=== PATIENT | female | born 1950 | race Asian ===

== ENCOUNTER → 2016-06-07 | Outpatient (CLI) | payer MEDICARE, BC, OTHER ==
[~2016-06-07] MED LIST: ISOVUE-370 76% 100ML VIAL (Q9967) As Ordered ONE
--- NOTE | 2016-06-08 08:28 | REP ---
CT NECK WITH CONTRAST: HISTORY: Enlarged lymph node. CONTRAST: Isovue 370, 75 mL. The naso-, ludin- and hypopharynx, larynx and subglottic trachea are normal in appearance. The salivary and thyroid glands are normal. Small lymph nodes less than 1 cm in size are present in the internal jugular chains, posterior triangles, submandibular and submental areas. Atherosclerotic calcification is present at the carotid bifurcations. Degenerative change is present in the cervical spine. The lung apices are clear. The visualized sinuses are clear. An implant is present in the soft tissue overlying the nasal bone. IMPRESSION: There is no neck mass or adenopathy. Signed by Demian Browning MD 06/08/2016 08:30 A
== END ==
LOC: M RAD 16:58
PROVIDERS: ATTEND Family Medicine
DX: R59.1 Generalized enlarged lymph nodes (principal)
CPT/HCPCS: 70491; Q9967

== ENCOUNTER 2016-09-26 09:28 | Emergency (ER) | payer MEDICARE, BC, OTHER ==
[~2016-09-26] VITALS: Ht 152.4 cm; Wt 71.7 kg
[2016-09-26] MEDS ORDERED: VITA1CAP40 PO (09:48)
[2016-09-26] MEDS ORDERED: METF10004 PO (09:48)
[2016-09-26] MEDS ORDERED: SYNT25TA PO (09:48)
[2016-09-26] MEDS ORDERED: ACTO45TA12 PO (09:48)
[2016-09-26] MEDS ORDERED: REFR0.5D8 (09:48)
[2016-09-26] MEDS ORDERED: OMEP20CA3 PO (09:48)
[2016-09-26] MEDS ORDERED: ALEN70TA39 PO (09:48)
[2016-09-26] MEDS ORDERED: LOSA50TA20 PO (09:48)
[2016-09-26] MEDS ORDERED: GRX1OIN (09:48)
[2016-09-26] MEDS ORDERED: NORCOTAB PO (10:58)
[2016-09-26 11:10] VITALS: BP 141/80
--- NOTE | 2016-09-26 12:15 | REP ---
Clinical: Trauma. Technique: Frontal view of the chest with multiple views of the right and left hemithoraces. Findings: Frontal view of the chest demonstrates no acute cardiopulmonary process. Multiple views of the left hemithorax demonstrates no obvious acute rib fracture or pathology. Oblique view of the right hemithorax suggests a nondisplaced fracture along the anterolateral margin of the right sixth rib. Impression: Cannot exclude very subtle nondisplaced anterior right sixth rib fracture. Signed by Taras Post MD 09/26/2016 10:44 A
== END 2016-09-26 11:18 | disposition home or self-care (01) ==
LOC: M ED 10:28
DX: S20.20XA Contusion of thorax, unspecified, initial encounter (principal); S22.31XA Fracture of one rib, right side, initial encounter for closed fracture; W01.198A Fall on same level from slipping, tripping and stumbling with subsequent striking against other object, initial encounter; Y92.019 Unspecified place in single-family (private) house as the place of occurrence of the external cause; Y93.89 Activity, other specified; Y99.8 Other external cause status; E11.9 Type 2 diabetes mellitus without complications; I10 Essential (primary) hypertension

== ENCOUNTER → 2017-04-19 | Outpatient (CLI) | payer OTHER | LOC: M RAD 15:10 | DX: S92.354D Nondisplaced fracture of fifth metatarsal bone, right foot, subsequent encounter for fracture with routine healing (principal) | CPT/HCPCS: 73700 ==

== ENCOUNTER → 2017-05-01 | Outpatient (CLI) | payer MEDICARE, OTHER | LOC: M RAD 14:40 | DX: Z12.31 Encounter for screening mammogram for malignant neoplasm of breast (principal); Z86.73 Personal history of transient ischemic attack (TIA), and cerebral infarction without residual deficits | CPT/HCPCS: 70551 ==

== ENCOUNTER → 2017-05-11 | Outpatient (CLI) | payer MEDICARE, OTHER, BC | LOC: M WHC 15:49 | DX: Z13.820 Encounter for screening for osteoporosis (principal); M85.80 Other specified disorders of bone density and structure, unspecified site; M81.0 Age-related osteoporosis without current pathological fracture | CPT/HCPCS: 77080 ==

== ENCOUNTER → 2018-07-05 | Outpatient (CLI) | payer MEDICARE, OTHER, BC ==
[~2018-07-05] MED LIST changes: +ACTO45TA12 PO; +ALEN70TA74 PO; +GRX1OIN; +HYDR-3715 PO; -ISOVUE-370 76% 100ML VIAL (Q9967) As Ordered ONE; +LOSA50TA88 PO; +METF10004 PO; +OMEP20CA3 PO; +REFR0.5D8; +SYNT25TA PO; +VITA50005 PO
--- NOTE | 2018-07-06 07:32 | REPMRS ---
Patient History The patient states she had a clinical breast exam in June 2018.Family history of colorectal cancer at age 58 in father. 3D TOMOSYNTHESIS WAS PERFORMED. Digital Mammo Screening Bilat: July 05, 2018 - Exam #: [id number] Bilateral CC and MLO view(s) were taken. Technologist: Brenna Ellis, Technologist Prior study comparison: May 01, 2017, bilateral digital mammo screening bilat performed at [facility]. January 12, 2016, bilateral digital mammo screening bilat performed at [facility]. FINDINGS: There are scattered fibroglandular densities. There has been no change in the appearance of the mammogram from the prior studies. There is a mild amount of residual fibroglandular tissue which is fairly symmetric. There is no interval development of dominant mass, architectural distortion, or clustered microcalcification suggestive of malignancy. Assessment: BI-RADS/ACR category 1 mammogram. Negative Mammogram. Recommendation Routine screening mammogram in 1 year (for women over age 40). This mammogram was interpreted with the aid of an FDA-approved computer-aided dectection system. Electronically Signed By: Librado Hickman MD 07/05/18 [id number]
== END ==
LOC: M RAD 16:25
PROVIDERS: ATTEND Family Medicine
DX: Z12.31 Encounter for screening mammogram for malignant neoplasm of breast (principal); Z80.0 Family history of malignant neoplasm of digestive organs

== ENCOUNTER 2018-08-23 08:10 | Day surgery (SDC) | payer MEDICARE, OTHER, BC ==
[~2018-08-23] VITALS: Ht 152.4 cm; Wt 69.9 kg
[~2018-08-23 08:10] MED LIST changes: +ACET-897 PO; +ACTO15TA19 PO; +ALL10TAB28 PO; +ASPI81TA26 PO; +BYDU2INJ7 SC; +CICL0.7739 TOP; +COLA100C5 PO; +EZET10TA PO; +GLIP5TAB8 PO; +HYDR12CA PO; +MAGN400T2 PO; +METF500T13 PO; +NS 1,000 ML IV ONE; +OMEP-218; -REFR0.5D8; +REFR0.5D8 OU; +SIMV40TA2 PO; +VESI10TA2 PO; +VITA500045
--- NOTE | 2018-08-23 10:23 | ROOR ---
Patient Name: Adrian Bhatt Procedure Date: 08/23/2018 10:11 AM Date of : 1950 Age: 68 Room: [facility] Gender: Female Note Status: Finalized Procedure: Upper GI endoscopy Indications: Dysphagia, Suspected esophageal reflux Providers: Eugene Sandhu Jr, MD Referring MD: JUANA ROWLAND MD Requesting Provider: Medicines: Propofol per Anesthesia Complications: No immediate complications. Procedure: Pre-Anesthesia Assessment: - Prior to the procedure, a History and Physical was performed, and patient medications and allergies were reviewed. The patient is competent. The risks and benefits of the procedure and the sedation options and risks were discussed with the patient. All questions were answered and informed consent was obtained. Patient identification and proposed procedure were verified by the physician and the nurse in the pre-procedure area and in the procedure room. Mental Status Examination: alert and oriented. Airway Examination: normal oropharyngeal airway and neck mobility. Respiratory Examination: clear to auscultation. CV Examination: normal. ASA Grade Assessment: II - A patient with mild systemic disease. After reviewing the risks and benefits, the patient was deemed in satisfactory condition to undergo the procedure. The anesthesia plan was to use moderate sedation / analgesia (conscious sedation). Immediately prior to administration of medications, the patient was re-assessed for adequacy to receive sedatives. The heart rate, respiratory rate, oxygen saturations, blood pressure, adequacy of pulmonary ventilation, and response to care were monitored throughout the procedure. The physical status of the patient was re-assessed after the procedure. The Endoscope was introduced through the mouth, and advanced to the second part of duodenum. The upper GI endoscopy was accomplished without difficulty. The patient tolerated the procedure well. Findings: The upper third of the esophagus, middle third of the esophagus, lower third of the esophagus and gastroesophageal junction were normal. The cardia, gastric fundus, gastric body, gastric antrum, prepyloric region of the stomach and pylorus were normal. The duodenal bulb, first portion of the duodenum and second portion of the duodenum were normal. Impression: - Normal upper third of esophagus, middle third of esophagus, lower third of esophagus and gastroesophageal junction. - Normal cardia, gastric fundus, gastric body, antrum, prepyloric region of the stomach and pylorus. - Normal duodenal bulb, first portion of the duodenum and second portion of the duodenum. - No specimens collected. Recommendation: - Discharge patient to home (ambulatory). - Return to primary care physician as previously scheduled. Eugene Sandhu MD Eugene Sandhu Jr, MD 08/23/2018 10:23:08 AM Electronically signed by Eugene Sandhu Jr, MD Number of Addenda: 0 Note Initiated On: 08/23/2018 10:11 AM Estimated Blood Loss: Estimated blood loss: none.
[2018-08-23] MEDS ORDERED: PROPOFOL 200 MG/20 ML VIAL As Ordered ONE (10:26)
[2018-08-23] MEDS ORDERED: LIDOCAINE 2% INJ 100 MG/5 ML SDV (FOR ANES.) As Ordered ONE (10:26)
--- NOTE | 2018-08-23 10:44 | ROOR ---
Patient Name: Adrian Bhatt Procedure Date: 08/23/2018 10:11 AM Date of : 1950 Age: 68 Room: [facility] Gender: Female Note Status: Finalized Procedure: Colonoscopy Indications: Screening for colorectal malignant neoplasm Providers: Eugene Sandhu Jr, MD Referring MD: JUANA ROWLAND MD Requesting Provider: Medicines: Propofol per Anesthesia Complications: No immediate complications. Procedure: Pre-Anesthesia Assessment: - Prior to the procedure, a History and Physical was performed, and patient medications and allergies were reviewed. The patient is competent. The risks and benefits of the procedure and the sedation options and risks were discussed with the patient. All questions were answered and informed consent was obtained. Patient identification and proposed procedure were verified by the physician and the nurse in the pre-procedure area and in the procedure room. Mental Status Examination: alert and oriented. Airway Examination: normal oropharyngeal airway and neck mobility. Respiratory Examination: clear to auscultation. CV Examination: normal. ASA Grade Assessment: II - A patient with mild systemic disease. After reviewing the risks and benefits, the patient was deemed in satisfactory condition to undergo the procedure. The anesthesia plan was to use moderate sedation / analgesia (conscious sedation). Immediately prior to administration of medications, the patient was re-assessed for adequacy to receive sedatives. The heart rate, respiratory rate, oxygen saturations, blood pressure, adequacy of pulmonary ventilation, and response to care were monitored throughout the procedure. The physical status of the patient was re-assessed after the procedure. The Colonoscope was introduced through the anus and advanced to the ascending colon. The patient tolerated the procedure well. The colonoscopy was performed with moderate difficulty due to inadequate bowel prep. The quality of the bowel preparation was good except the ascending colon was poor. Findings: The rectum, sigmoid colon, descending colon, transverse colon and ascending colon appeared normal. The sigmoid colon, descending colon, transverse colon and ascending colon were moderately redundant. Impression: - The rectum, sigmoid colon, descending colon, transverse colon and ascending colon are normal. - Redundant colon. - No specimens collected. Recommendation: - Repeat colonoscopy in 10 years for screening purposes. Eugene Sandhu MD Eugene Sandhu Jr, MD 08/23/2018 10:44:08 AM Electronically signed by Eugene Sandhu Jr, MD Number of Addenda: 0 Note Initiated On: 08/23/2018 10:11 AM Estimated Blood Loss: Estimated blood loss: none.
[2018-08-23 11:25] VITALS: BP 150/85
== END 2018-08-23 11:28 | disposition home or self-care (01) ==
LOC: M OPP 08:10
PROVIDERS: ATTEND Surgery
DX: Z12.11 Encounter for screening for malignant neoplasm of colon (principal); Q43.8 Other specified congenital malformations of intestine; R13.10 Dysphagia, unspecified; Z91.040 Latex allergy status; Z91.048 Other nonmedicinal substance allergy status; Z79.899 Other long term (current) drug therapy
CPT/HCPCS: 43235; G0121

== ENCOUNTER → 2020-07-01 | Outpatient (CLI) | payer MEDICARE, BC, OTHER ==
[~2020-07-01] MED LIST changes: -ALEN70TA74 PO; +ALEN70TA82 PO; -ALL10TAB28 PO; +CETI-24 PO; -EZET10TA PO; +EZET10TA21 PO; -NS 1,000 ML IV ONE; +OMEP1CAP73 PO; -OMEP20CA3 PO; -SIMV40TA2 PO; +SIMV40TA20 PO
--- NOTE | 2020-07-01 17:57 | REPVR ---
PROCEDURE INFORMATION: Exam: CT Head Without Contrast Exam date and time: 07/01/2020 5:16 PM Age: 69 years old Clinical indication: Pain; Headache; Additional info: Santos's TECHNIQUE: Imaging protocol: Computed tomography of the head without contrast. Radiation optimization: All CT scans at this facility use at least one of these dose optimization techniques: automated exposure control; mA and/or kV adjustment per patient size (includes targeted exams where dose is matched to clinical indication); or iterative reconstruction. COMPARISON: MRI-Brain without Contrast 05/01/2017 4:06 PM FINDINGS: Brain: No acute intracranial hemorrhage is visualized. The white-hernandez differentiation is preserved demonstrating no acute territorial type infarct. There is minimal periventricular white matter hypodensity, likely representing small vessel ischemic disease in a patient this age. The acuity of the white matter disease is indeterminate. There is no midline shift. A small hypodense dilated perivascular space is visualized below the right basal ganglia. A small calcification is identified within the right basal ganglia. Mild age-appropriate prominence of the sulci. Cerebral ventricles: A cavum septum pellucidum variant is visualized. No ventriculomegaly. Bones/joints: The calvarium demonstrates no evidence for a depressed fracture. Hyperostosis frontalis interna. Paranasal sinuses: Visualized sinuses are unremarkable. No fluid levels. Mastoid air cells: No mastoid effusion. Orbital cavity: Bilateral orbital lens implants. Vasculature: Intracranial atherosclerosis visualized. Soft tissues: Unremarkable. IMPRESSION: 1. No acute intracranial hemorrhage or acute territorial type infarct. 2. There is minimal periventricular white matter hypodensity, likely representing small vessel ischemic disease in a patient this age. Electronically signed by: Braulio Miranda On 07/01/2020 17:58:16 PM
--- NOTE | 2020-07-02 07:41 | REP ---
INDICATION: SÁNCHEZ'S COMPARISON: None. TECHNIQUE: AP and lateral views of the thoracic spine FINDINGS: Alignment and kyphosis maintained. Age-related osteopenia and moderate/advanced multilevel degenerative changes include osteophytosis, endplate sclerosis, and elements of disc space narrowing. No acute fracture/compression injury or subluxation. IMPRESSION: Osteopenia and age-related multilevel degenerative spondylosis. <Electronically signed by Taras Post > 07/02/20 0737
--- NOTE | 2020-07-02 07:42 | REP ---
INDICATION: SÁNCHEZ'S COMPARISON: None. TECHNIQUE: AP, lateral, bilateral oblique, and coned-down views of the lumbar spine. FINDINGS: Alignment and lordosis maintained. Vertebral bodies are intact. Disc spaces are relatively normal/age-appropriate. No acute fracture/compression injury or subluxation. Very minimal hypertrophic facet changes and anterolisthesis at the L5-S1 level suggested. IMPRESSION: Essentially age-appropriate examination. <Electronically signed by Taras Post > 07/02/20 0769
--- NOTE | 2020-07-02 07:45 | REP ---
INDICATION: SÁNCHEZ'S. COMPARISON: None. TECHNIQUE: AP, lateral, flexion/extension, bilateral oblique, swimmer's, open mouth views of the cervical spine. FINDINGS: Straightening of normal lordosis nonspecific. Moderate to advanced multilevel degenerative changes include endplate sclerosis, disc space narrowing, osteophytosis and hypertrophic facet changes. No acute fracture/compression injury or subluxation. IMPRESSION: Moderate to advanced multilevel degenerative spondylosis. <Electronically signed by Taras Post > 07/02/20 0746
== END ==
LOC: M RAD 16:59
PROVIDERS: ATTEND Family Medicine
DX: M47.812 Spondylosis without myelopathy or radiculopathy, cervical region (principal); M47.814 Spondylosis without myelopathy or radiculopathy, thoracic region; M85.88 Other specified disorders of bone density and structure, other site; G44.89 Other headache syndrome; M54.2 Cervicalgia

== ENCOUNTER → 2020-08-03 | Outpatient (CLI) | payer MEDICARE, BC, OTHER ==
--- NOTE | 2020-08-04 09:09 | REP ---
INDICATION: RADICULOPATHY CERVICAL REGION. COMPARISON: Comparison cervical spine radiographs are from July 01, 2020.. TECHNIQUE: Sagittal and axial T1 and T2-weighted scans are acquired in the usual fashion with and without fat saturation. Sequences include spin echo, turbo spin-echo, and STIR imaging sequences. FINDINGS: There is reversal of the normal cervical lordosis. Cervical vertebral body heights are preserved. Alignment is otherwise normal. No bony destructive lesion is seen. There are degenerative disc changes which are most pronounced at C5-6 and C6-7 and there are some mild reactive marrow edema changes on either side of the C5-6 disc. Craniocervical junction is unremarkable. The cervical cord is normal in course, caliber and signal intensity on T1 and T2 weighted scans. No extra spinal abnormality is observed. Axial and sagittal images taken at C2-C3 demonstrate mild central disc bulging. No spinal stenosis or foraminal encroachment. At C3-C4, there is a central focal disc protrusion which effaces the ventral subarachnoid space but does not visibly deform the cervical cord. No foraminal narrowing or overall spinal stenosis is seen. The central disc protrusion is visualized on axial images. Juanita the C4-5 level, there is also a central focal disc protrusion. This indents the ventral margin of the cord but does not displace the cord. No spinal stenosis is seen. No neural foraminal narrowing is observed. At the C5-6 level, there is diffuse disc bulging with posterior osteophytic ridging. There is mild bilateral uncovertebral spurring producing foraminal narrowing on the right and to a lesser extent on the left. No overall cord compression. At C6-C7, there is similar diffuse disc bulging and posterior osteophytic ridging. Bilateral uncovertebral spurring is seen producing moderate bilateral neural foraminal narrowing at C6-7. There is mild ligamentum flavum hypertrophy. The midline AP dimension of the thecal sac at C6-7 is 9 mm. No jorge cord compression. The C7-T1 level is unremarkable. There is minimal disc bulging at the T2-3 level in the upper thoracic spine at the bottom of the imaging field of view. IMPRESSION: Degenerative spondylosis changes. There are central disc protrusions at C3-4 and C4-5. There is diffuse disc bulging with osteophytic ridging and uncovertebral spurring producing neural foraminal narrowing at C5-6 and C6-7 as described above. <Electronically signed by Bao Mckeon > 08/04/20 0919
== END ==
LOC: M RAD 17:04
PROVIDERS: ATTEND Family Medicine
DX: M50.21 Other cervical disc displacement, high cervical region (principal); M50.221 Other cervical disc displacement at C4-C5 level; M50.222 Other cervical disc displacement at C5-C6 level; M50.223 Other cervical disc displacement at C6-C7 level; M47.812 Spondylosis without myelopathy or radiculopathy, cervical region

== ENCOUNTER → 2020-08-07 | Outpatient (CLI) | payer MEDICARE, BC, OTHER ==
--- NOTE | 2020-08-07 16:24 | REP ---
INDICATION: Z12.31 SCREENING MAMMO. COMPARISON: MULTIPLE TECHNIQUE: Digital screening mammography was carried out bilaterally in the CC and MLO projections using both 2D and 3D modalities and compared to the prior exams. By history, the patient has no complaints of a palpable breast abnormality or other significant breast complaints. FINDINGS: The breasts are unchanged in size and shape. Once again, scattered dense heterogenous fibroglandular elements are seen bilaterally. In the slightly upper outer quadrant of the right breast there is a potential joycelyn density near the 9 o'clock position. No other suspicious features are seen in either breast. Stable benign calcifications are seen bilaterally. The Volpara volumetric breast density pattern is b. IMPRESSION: BIRADS/ACR category 0. Potential joycelyn density in the right breast as described above and for which diagnostic digital magnified spot compression views are recommended in the CC and MLO projections along with diagnostic ultrasonography if necessary. This patient's Tyrer-Cuzick lifetime breast cancer risk assessment score is 1.4%. This mammogram was interpreted with the aid of an FDA-approved computer-aided detection system. The patient states she had a clinical breast exam in July 2020. The patient letter being requested is M0. RECOMMENDATION: As above <Electronically signed by Sujit Howe > 08/07/20 [id number]
== END ==
LOC: M WHC 14:58
PROVIDERS: ATTEND Family Medicine
DX: Z12.31 Encounter for screening mammogram for malignant neoplasm of breast (principal); R92.1 Mammographic calcification found on diagnostic imaging of breast; R92.8 Other abnormal and inconclusive findings on diagnostic imaging of breast

== ENCOUNTER → 2020-09-03 | Outpatient (CLI) | payer MEDICARE, BC, OTHER ==
--- NOTE | 2020-09-03 11:50 | REP ---
INDICATION: ADDITIONAL VIEWS RT BREAST. COMPARISON: Latest prior screening examination 08/07/2020 TECHNIQUE: Diagnostic digital magnified spot compression views of the right breast FINDINGS: The small area of interest in the right breast slightly upper outer quadrant has compressed out to normal breast parenchyma on the diagnostic spot compression views. No abnormalities are noted. IMPRESSION: BIRADS/ACR category 2 negative mammogram. The patient letter being requested is M1. RECOMMENDATION: Repeat screening mammography recommended 1 year (for women over 40). <Electronically signed by Sujit Howe > 09/03/20 1145
== END ==
LOC: M WHC 11:00
PROVIDERS: ATTEND Family Medicine
DX: R92.8 Other abnormal and inconclusive findings on diagnostic imaging of breast (principal)

== ENCOUNTER 2020-09-28 12:56 | Emergency (ER) | payer MEDICARE, BC, OTHER ==
[~2020-09-28] VITALS: Ht 152.4 cm; Wt 71.9 kg
[2020-09-28] MEDS ORDERED: GABA-282 (13:54)
[2020-09-28] MEDS ORDERED: LIDOCAINE 2% 5ML JELLY UROJET TOP ONE (16:05)
[2020-09-28] MEDS ORDERED: NORCO, ANEXSIA 5/325MG TABLET (HYDROcodone/ACETAMINOPHEN) PO ONE ×2 (16:05→22:15)
--- NOTE | 2020-09-28 17:48 | REPVR ---
PROCEDURE INFORMATION: Exam: CT Head Without Contrast Exam date and time: 09/28/2020 4:03 PM Age: 70 years old Clinical indication: Injury or trauma; Fall; Blunt trauma (contusions or hematomas); Additional info: Fall down 1 story escalator, post head pain, no loc TECHNIQUE: Imaging protocol: Computed tomography of the head without contrast. Radiation optimization: All CT scans at this facility use at least one of these dose optimization techniques: automated exposure control; mA and/or kV adjustment per patient size (includes targeted exams where dose is matched to clinical indication); or iterative reconstruction. COMPARISON: CT Head without contrast 07/01/2020 5:18 PM FINDINGS: Brain: No acute intracranial hemorrhage, cerebral edema, or midline shift. Cerebral ventricles: No hydrocephalus. Paranasal sinuses: There is no acute sinusitis. Mastoid air cells: Visualized mastoid air cells are well aerated. Orbital cavity: Unremarkable as visualized. Vasculature: Atherosclerotic calcifications are seen involving the cavernous carotid arteries. Bones/joints: Hyperostosis frontalis interna is noted. Soft tissues: Unremarkable. IMPRESSION: No acute intracranial abnormality. Electronically signed by: Pedro Law On 09/28/2020 17:47:17 PM
--- NOTE | 2020-09-28 18:11 | REPVR ---
PROCEDURE INFORMATION: Exam: CT Cervical Spine Without Contrast Exam date and time: 09/28/2020 4:03 PM Age: 70 years old Clinical indication: Injury or trauma; Fall; Blunt trauma; Additional info: Fall down 1 story escalator, sev back pain, unable to walk TECHNIQUE: Imaging protocol: Computed tomography images of the cervical spine without contrast. Radiation optimization: All CT scans at this facility use at least one of these dose optimization techniques: automated exposure control; mA and/or kV adjustment per patient size (includes targeted exams where dose is matched to clinical indication); or iterative reconstruction. COMPARISON: MRI-Spine,Cervical without con 08/03/2020 5:51 PM FINDINGS: Bones/joints: There is mild reversal of the normal cervical lordosis. No acute fracture is identified. Discs/Spinal canal/Neural foramina: Moderate degenerative changes of the cervical spine are present. There is no severe spinal canal stenosis. Multilevel neural foraminal narrowing from uncinate spurring and facet arthropathy is noted. Lungs: Lung apices are normal. Vasculature: Atherosclerotic calcifications are present at the carotid bifurcations. Soft tissues: Unremarkable. IMPRESSION: 1. No acute abnormality. 2. Chronic findings as discussed above. Electronically signed by: Pedro Law On 09/28/2020 18:11:12 PM
--- NOTE | 2020-09-28 18:12 | REPVR ---
PROCEDURE INFORMATION: Exam: CT Lumbar Spine Without Contrast Exam date and time: 09/28/2020 4:03 PM Age: 70 years old Clinical indication: Injury or trauma; Fall; Blunt trauma (contusions or hematomas); Additional info: Fall down 1 story escalator, severe back pain TECHNIQUE: Imaging protocol: Computed tomography images of the lumbar spine without contrast. Radiation optimization: All CT scans at this facility use at least one of these dose optimization techniques: automated exposure control; mA and/or kV adjustment per patient size (includes targeted exams where dose is matched to clinical indication); or iterative reconstruction. COMPARISON: CR Spine. Lumbosacral, complete 07/01/2020 5:16 PM FINDINGS: Vertebrae: The lumbar vertebra and facet joints appear in alignment. There is no evidence of fracture. There is sclerosis and facet hypertrophy bilaterally. L5-S1: The L5-S1 level demonstrates a moderate posterior disc protrusion causing mild impression on the thecal sac. Soft tissues: There is vascular calcification. IMPRESSION: No evidence of fracture. Electronically signed by: Micheal Richards On 09/28/2020 18:12:27 PM
--- NOTE | 2020-09-28 18:28 | REPVR ---
PROCEDURE INFORMATION: Exam: CT Thoracic Spine Without Contrast Exam date and time: 09/28/2020 4:03 PM Age: 70 years old Clinical indication: Injury or trauma; Fall; Blunt trauma (contusions or hematomas); Additional info: Fall down 1 story escalator, sev back pain TECHNIQUE: Imaging protocol: Computed tomography images of the thoracic spine without contrast. Radiation optimization: All CT scans at this facility use at least one of these dose optimization techniques: automated exposure control; mA and/or kV adjustment per patient size (includes targeted exams where dose is matched to clinical indication); or iterative reconstruction. COMPARISON: CR Spine, Thoracic 3 VIEWS 07/01/2020 5:16 PM FINDINGS: Vertebrae: There is a horizontal fracture of the superior endplate of T12 and also mild compression of the superior endplate. This creates a moderate posterior osteophyte causing moderate impression on the thecal sac at the level of the upper margin T12 greater on the right. There is anterior osteophyte formation of the thoracic spine and mild kyphosis. Other bones/joints: There is irregularity of the sternum and suggest radiographs of the sternum to exclude fracture. Adrenals: There is a 2.1 cm nodule of the left adrenal gland probably an adenoma and recommend follow-up CT in 6 months to document stability. IMPRESSION: 1. There is a horizontal fracture of the superior endplate of T12 with mild compression of the superior endplate. Moderate posterior osteophyte causing moderate impression on the thecal sac. 2. Irregularity of the sternum and recommend plain films of the sternum to exclude fracture. 3. 2.1 cm nodule left adrenal gland probably an adenoma and recommend follow-up CT in 6 months to document stability. Electronically signed by: Micheal Richards On 09/28/2020 18:28:28 PM
[2020-09-28] MEDS ORDERED: methocarbamoL 500 MG TAB PO ONE (18:30)
[2020-09-28] MEDS ORDERED: LIDOCAINE 4% CREAM 5GM (LMX4) TOP ONE (18:30)
[2020-09-28 19:04] LABS: BASO % 0.3 % (0.0-1.0); EOS # 0.2 10^3/uL (0.0-0.5); EOS % 3.7 % (0.0-3.0); HEMATOCRIT 38.1 % (36.0-47.0); HEMOGLOBIN 11.5 g/dl (12.0-15.5); LYMPH # 1.7 10^3/uL (1.5-5.0); LYMPH % 28.9 % (24.0-44.0); MEAN CORPUSCULAR HGB CONC 30.2 g/dl (32.0-36.5); MEAN CORPUSCULAR VOLUME 89.4 fl (80.0-96.0); MONO # 0.5 10^3/uL (0.0-0.8); MONO % 8.9 % (2.0-8.0); NEUTROPHILS # 3.3 10^3/uL (1.5-8.5); NEUTROPHILS % 57.5 % (36.0-66.0); PLATELET COUNT, AUTOMATED 217 10^3/uL (150-450); RED BLOOD COUNT 4.26 10^6/uL (4.00-5.40); WHITE BLOOD COUNT 5.8 10^3/uL (4.0-10.0)
[2020-09-28 19:26] LABS: ALBUMIN 3.4 GM/DL (3.2-5.2); ALT/SGPT 42 U/L (12-78); BILIRUBIN,DIRECT 0.1 MG/DL (0.0-0.2); BILIRUBIN,TOTAL 0.3 MG/DL (0.2-1.0); BLOOD UREA NITROGEN 14 MG/DL (7-18); CALCIUM LEVEL 8.9 MG/DL (8.8-10.2); CARBON DIOXIDE LEVEL 28 MEQ/L (21-32); CHLORIDE LEVEL 104 MEQ/L (98-107); CREATININE FOR GFR 0.72 MG/DL (0.55-1.30); GLOMERULAR FILTRATION RATE > 60.0 (>39); GLUCOSE, FASTING 79 MG/DL (70-100); LIPASE 49 U/L (73-393); SODIUM LEVEL 138 MEQ/L (136-145); TOTAL PROTEIN 6.9 GM/DL (6.4-8.2)
[2020-09-28] MEDS ORDERED: ISOVUE-370 76% 100ML VIAL As Ordered ONE (20:02)
--- NOTE | 2020-09-28 20:04 | REPVR ---
PROCEDURE INFORMATION: Exam: MR Lumbar Spine Without Contrast Exam date and time: 09/28/2020 7:29 PM Age: 70 years old Clinical indication: Injury or trauma; Fall; Crushing; Injury date: Today; Injury details: Fell down escalator; Additional info: Urinary retention, fall down 1 story escalator, sev pain TECHNIQUE: Imaging protocol: Multiplanar magnetic resonance images of the lumbar spine without intravenous contrast. COMPARISON: CT Spine, lumbar w/o contrast 09/28/2020 5:05 PM FINDINGS: Vertebrae: There is a horizontal fracture of the superior endplate of T12 with prominent edema of the upper half of the vertebra. There is mild compression of the superior endplate causing a moderate posterior osteophyte/bony ridge. This causes moderate impression on the thecal sac. Spinal cord: The conus is normal in size and ending at T12 with no evidence of abnormal bright signal intensity edema. The thoracic cord ends at L1. Soft tissues: There is mild soft tissue swelling in the subcutaneous layer posteriorly. IMPRESSION: Horizontal fracture of the superior endplate of T12 with mild compression of the endplate. This causes a posterior bony ridge at the upper margin of T12 causing moderate impression on the thecal sac. Electronically signed by: Micheal Richards On 09/28/2020 20:03:44 PM
[2020-09-28 21:38] LABS: RSV AMPLIFICATION NEGATIVE (NEGATIVE)
--- NOTE | 2020-09-28 22:18 | REPVR ---
PROCEDURE INFORMATION: Exam: CT Abdomen And Pelvis Without Contrast Exam date and time: 09/28/2020 8:53 PM Age: 70 years old Clinical indication: Abdominal pain; Additional info: Diffuse abd pain TECHNIQUE: Imaging protocol: Computed tomography of the abdomen and pelvis without contrast. Radiation optimization: All CT scans at this facility use at least one of these dose optimization techniques: automated exposure control; mA and/or kV adjustment per patient size (includes targeted exams where dose is matched to clinical indication); or iterative reconstruction. COMPARISON: CT ABD PELVIS WITH CONTRAST 11/05/2013 8:30 PM FINDINGS: Lungs: Clear appearing lung bases. Heart: The heart is normal in size and there is no pericardial effusion. Liver: Normal appearing liver and appearing intact. Gallbladder and bile ducts: The gallbladder is partially contracted. Small amount of sludge and gravel like material within the gallbladder. Pancreas: Normal pancreas. Spleen: Normal spleen and appearing intact. Adrenal glands: Nodule of the left adrenal gland unchanged since 2013 and probably an adenoma. Kidneys and ureters: Normal appearing kidneys. Stomach and bowel: Unremarkable. No obstruction. No mucosal thickening. Appendix: Normal appearing appendix. Intraperitoneal space: There is no evidence of pneumoperitoneum. There is no evidence of free fluid in the abdomen or pelvis. Vasculature: There is calcification of the aorta and consistent with atherosclerotic changes. There are prominent varices at the left upper quadrant and extending along the left side of the abdomen to the pelvis. Lymph nodes: There is no evidence of lymphadenopathy. Urinary bladder: There is a Mills catheter within the urinary bladder. There is a small amount of urine within the urinary bladder. Soft tissues: There is no evidence of soft tissue abnormality. IMPRESSION: 1. There is a horizontal fracture of the superior endplate of T12. The fracture extends to the superior posterior aspect of the vertebral body abutting the pedicle. Corner type fragment of bone creating a posterior bony ridge and moderate impression on the thecal sac. 2. No organ laceration. Electronically signed by: Micheal Richards On 09/28/2020 22:17:27 PM
[2020-09-29 00:43] VITALS: BP 128/95
== END 2020-09-29 00:55 | disposition short-term general hospital (02) ==
LOC: M ED 12:56
DX: S22.088A Other fracture of T11-T12 vertebra, initial encounter for closed fracture (principal); R33.9 Retention of urine, unspecified; W10.0XXA Fall (on)(from) escalator, initial encounter; Y92.59 Other trade areas as the place of occurrence of the external cause; Y93.9 Activity, unspecified; Y99.9 Unspecified external cause status; E11.9 Type 2 diabetes mellitus without complications; I10 Essential (primary) hypertension; E03.9 Hypothyroidism, unspecified; N32.81 Overactive bladder; M81.0 Age-related osteoporosis without current pathological fracture; E78.5 Hyperlipidemia, unspecified; E27.9 Disorder of adrenal gland, unspecified; M25.78 Osteophyte, vertebrae; Z79.84 Long term (current) use of oral hypoglycemic drugs; Z79.82 Long term (current) use of aspirin; Z79.899 Other long term (current) drug therapy; Z91.040 Latex allergy status
CPT/HCPCS: 36415; 51701; 70450; 72125; 72128; 72131; 72148; 74176; 80048; 80076; 81001; 83690; 85025; 86850; 86900; 86901; 87086; 87631; 99284; Q9967

== ENCOUNTER → 2021-05-17 | Outpatient (CLI) | payer MEDICARE, BC, OTHER ==
[~2021-05-17] MED LIST changes: +GABA-282; +LOSA50TA28 PO; -LOSA50TA88 PO; +OMEP-173; -OMEP-218
[2021-05-17 13:50] LABS: VITAMIN B12 LEVEL 322 PG/ML (247-911)
== END ==
LOC: M RAD 07:24
PROVIDERS: ATTEND Family Medicine
DX: G44.89 Other headache syndrome (principal)

== ENCOUNTER → 2021-11-26 | Outpatient (CLI) | payer MEDICARE, BC, OTHER ==
[2021-11-26 17:00] LABS: BILIRUBIN,DIRECT 0.2 MG/DL (0.0-0.2); BILIRUBIN,TOTAL 0.4 MG/DL (0.2-1.0); CHOLESTEROL RISK RATIO 2.54 (<5); PERCENT SATURATION 13.5 % (13.2-45.0); TOTAL PROTEIN 7.9 GM/DL (6.4-8.2)
[2021-11-26 17:29] LABS: FOLATE 18.4 NG/ML
== END ==
LOC: M LAB 15:26
PROVIDERS: ATTEND Family Medicine
DX: E78.2 Mixed hyperlipidemia (principal); D63.8 Anemia in other chronic diseases classified elsewhere

== ENCOUNTER → 2021-12-03 | Outpatient (CLI) | payer MEDICARE, BC, OTHER | LOC: M WHC 13:56 | PROVIDERS: ATTEND Family Medicine | DX: Z12.31 Encounter for screening mammogram for malignant neoplasm of breast (principal); M81.0 Age-related osteoporosis without current pathological fracture; M85.88 Other specified disorders of bone density and structure, other site; M85.851 Other specified disorders of bone density and structure, right thigh; M85.852 Other specified disorders of bone density and structure, left thigh ==

== ENCOUNTER → 2022-02-02 | Outpatient (CLI) | payer MEDICARE, BC, OTHER ==
[2022-02-02 11:38] LABS: BASO # 0.1 10^3/uL (0.0-0.2); BASO % 0.7 % (0.0-1.0); EOS # 0.2 10^3/uL (0.0-0.5); EOS % 2.5 % (0.0-3.0); HEMATOCRIT 41.9 % (36.0-47.0); HEMOGLOBIN 12.7 g/dl (12.0-15.5); LYMPH # 2.6 10^3/uL (1.5-5.0); LYMPH % 37.7 % (24.0-44.0); MEAN CORPUSCULAR HGB CONC 30.3 g/dl (32.0-36.5); MEAN CORPUSCULAR VOLUME 82.3 fl (80.0-96.0); MONO # 0.6 10^3/uL (0.0-0.8); MONO % 8.1 % (2.0-8.0); NEUTROPHILS # 3.5 10^3/uL (1.5-8.5); NEUTROPHILS % 50.7 % (36.0-66.0); PLATELET COUNT, AUTOMATED 240 10^3/uL (150-450); RED BLOOD COUNT 5.09 10^6/uL (4.00-5.40); WHITE BLOOD COUNT 6.9 10^3/uL (4.0-10.0)
[2022-02-02 13:57] LABS: ALBUMIN 3.8 GM/DL (3.2-5.2); ALT/SGPT 25 U/L (12-78); BILIRUBIN,TOTAL 0.4 MG/DL (0.2-1.0); BLOOD UREA NITROGEN 12 MG/DL (7-18); CALCIUM LEVEL 9.9 MG/DL (8.8-10.2); CARBON DIOXIDE LEVEL 27 MEQ/L (21-32); CHLORIDE LEVEL 105 MEQ/L (98-107); CHOLESTEROL LEVEL 155 MG/DL (<200); CHOLESTEROL RISK RATIO 2.719 (<5); CREATININE FOR GFR 0.84 MG/DL (0.55-1.30); FREE T3 2.7 PG/ML (2.2-4.0); FREE T4 0.96 NG/DL (0.76-1.46); GLOMERULAR FILTRATION RATE > 60.0 (>39); GLUCOSE, FASTING 186 MG/DL (70-100); HDL CHOLESTEROL 57 MG/DL (>40); LDL CHOLESTEROL 72 MG/DL (<100); MAGNESIUM LEVEL 2.1 MG/DL (1.8-2.4); NON-HDL-C 98 MG/DL; NT-PRO BNP 64 PG/ML (<125); POTASSIUM SERUM 4.1 MEQ/L (3.5-5.1); SODIUM LEVEL 135 MEQ/L (136-145); TOTAL 25(OH) VITAMIN D 62.7 NG/ML (30.0-100.0); TOTAL PROTEIN 7.9 GM/DL (6.4-8.2); TRIGLYCERIDES LEVEL 129 MG/DL (<150); URIC ACID 4.5 MG/DL (2.6-6.0)
== END ==
LOC: M LAB 10:51
PROVIDERS: ATTEND Family Medicine
DX: R60.9 Edema, unspecified (principal); E03.9 Hypothyroidism, unspecified; E11.29 Type 2 diabetes mellitus with other diabetic kidney complication; I10 Essential (primary) hypertension; E56.9 Vitamin deficiency, unspecified; E78.2 Mixed hyperlipidemia

== ENCOUNTER → 2022-04-18 | Outpatient (CLI) | payer MEDICARE, BC, OTHER ==
[2022-04-18 11:38] LABS: FREE T3 3.4 PG/ML (2.3-4.2); THYROID STIMULATING HORMONE 10.55 uIU/ML (0.55-4.78)
[2022-04-18 11:39] LABS: FREE T4 0.93 NG/DL (0.89-1.76)
== END ==
LOC: M LAB 09:51
PROVIDERS: ATTEND Family Medicine
DX: E03.9 Hypothyroidism, unspecified (principal)

== ENCOUNTER 2022-05-17 00:24 | Inpatient (IN) | payer MEDICARE, BC, OTHER ==
[~2022-05-17] VITALS: Ht 152.4 cm; Wt 65.6 kg
[~2022-05-17 00:24] MED LIST changes: -GABA-282; +GABA-282 PO
[2022-05-17] MEDS ORDERED: LANTINJ4 SC (00:44)
[2022-05-17] MEDS ORDERED: ONDANSETRON 4MG 2ML VIAL IV ONE (01:10)
[2022-05-17] MEDS ORDERED: NS 1,000 ML IV ONE (01:10)
[2022-05-17 02:40] LABS: BASO % 0.2 % (0.0-1.0); EOS % 0.1 % (0.0-3.0); HEMATOCRIT 43.2 % (36.0-47.0); HEMOGLOBIN 13.8 g/dl (12.0-15.5); LYMPH # 1.6 10^3/uL (1.5-5.0); LYMPH % 15.5 % (24.0-44.0); MEAN CORPUSCULAR HEMOGLOBIN 25.7 pg (27.0-33.0); MEAN CORPUSCULAR HGB CONC 31.9 g/dl (32.0-36.5); MEAN CORPUSCULAR VOLUME 80.6 fl (80.0-96.0); MONO # 0.8 10^3/uL (0.0-0.8); MONO % 7.3 % (2.0-8.0); NEUTROPHILS # 7.9 10^3/uL (1.5-8.5); NEUTROPHILS % 76.5 % (36.0-66.0); PLATELET COUNT, AUTOMATED 219 10^3/uL (150-450); RED BLOOD COUNT 5.36 10^6/uL (4.00-5.40); WHITE BLOOD COUNT 10.3 10^3/uL (4.0-10.0)
[2022-05-17 02:55] LABS: LIPASE 20 U/L (12-53)
[2022-05-17 03:57] LABS: ALBUMIN 4.1 G/DL (3.2-5.2); ALKALINE PHOSPHATASE 68 U/L (46-116); ALT/SGPT 13 U/L (7.0-40); AST/SGOT 22 U/L (<34); BILIRUBIN,TOTAL 1.2 MG/DL (0.3-1.2); BLOOD UREA NITROGEN 26 MG/DL (9-23); CALCIUM LEVEL 9.5 MG/DL (8.3-10.6); CARBON DIOXIDE LEVEL 29 MMOL/L (20-31); CHLORIDE LEVEL 98 MMOL/L (98-107); CK-MB VALUE MASS < 1.0 NG/ML (<3.6); CREATININE FOR GFR 0.69 MG/DL (0.55-1.30); GLOMERULAR FILTRATION RATE > 60.0 (>39); GLUCOSE, FASTING 161 MG/DL (74-106); MAGNESIUM LEVEL 2.2 MG/DL (1.8-2.4); POTASSIUM SERUM 3.3 MMOL/L (3.5-5.1); SODIUM LEVEL 140 MMOL/L (136-145); THYROID STIMULATING HORMONE 4.828 uIU/ML (0.55-4.78)
[2022-05-17] MEDS ORDERED: METOCLOPRAMIDE INJ 10MG/2ML VIAL IV ONE (06:10)
[2022-05-17 06:16] LABS: CPK CREATINE PHOSPHOKINASE 60 U/L (34-145); MB/CK RELATIVE INDEX 1.66 (< OR =4)
[2022-05-17] MEDS ORDERED: DEXTROSE 50% 50ML SYRINGE IV PRN (07:45)
[2022-05-17] MEDS ORDERED: GLUCOSE 4GM CHEW TABLET PO PRN (07:45)
[2022-05-17] MEDS ORDERED: NS 500 ML IV ONE (07:45)
[2022-05-17] MEDS: D5W/0.45% SODIUM CHLORIDE 1,000 ML IV SCH ×2 (07:45→17:25)
[2022-05-17] MEDS ORDERED: GLUCAGON INJ 1MG VIAL SC PRN (07:45)
[2022-05-17] MEDS ORDERED: ISOVUE-370 76% 100ML VIAL As Ordered ONE (08:19)
[2022-05-17] MEDS ORDERED: PIOG1TAB55 PO (08:37)
[2022-05-17] MEDS ORDERED: DRIS50003 PO (08:37)
[2022-05-17] MEDS ORDERED: METF10004 PO (08:37)
[2022-05-17] MEDS ORDERED: LEVO100T5 PO (08:37)
[2022-05-17] MEDS ORDERED: LOSA100T45 PO (09:12)
[2022-05-17] MEDS ORDERED: ZOLO100T PO (09:16)
[2022-05-17] MEDS ORDERED: TRUL10IN SC (09:16)
[2022-05-17] MEDS ORDERED: HOME MED LIST COMPLETE! XX SCH (09:20)
[2022-05-17 09:27] LABS: FREE T4 1.09 NG/DL (0.89-1.76); THYROID STIMULATING HORMONE 7.207 uIU/ML (0.55-4.78)
[2022-05-17] MEDS: KCL 10MEQ/100ML SWI (KRUN) 10 MEQ in IV 1 EA IV SCH ×4 (09:31→15:20)
[2022-05-17] MEDS: ENOXAPARIN 40MG/0.4ML SYRINGE (J1650 PER 10MG) SC SCH (09:32)
[2022-05-17] MEDS: PANTOPRAZOLE 40MG VIAL IV SCH ×2 (11:01→23:05)
[2022-05-17] MEDS: hydrALAZINE 20MG/ML 1ML VIAL IV SCH ×3 (11:02→22:14)
[2022-05-17] MEDS: INSULIN LISPRO (NovoLOG) PER UNIT SC SCH ×2 (13:02→17:23)
[2022-05-17] MEDS ORDERED: KCL 10MEQ/100ML SWI (KRUN) 10 MEQ in IV 1 EA IV ONE (15:30)
[2022-05-17] MEDS: ONDANSETRON 4MG 2ML VIAL IV PRN (16:35)
[2022-05-17 16:52] VITALS: BP 141/80
[2022-05-17 19:52] VITALS: BP 148/68
[2022-05-18] VITALS (8 sets, daily range): BP systolic 148–156; BP diastolic 69–79
[2022-05-18] MEDS: INSULIN LISPRO (NovoLOG) PER UNIT SC SCH ×4 (00:44→18:49)
[2022-05-18] MEDS: D5W/0.45% SODIUM CHLORIDE 1,000 ML IV SCH ×3 (01:44→22:48)
[2022-05-18 06:20] LABS: MEAN CORPUSCULAR HEMOGLOBIN 25.9 pg (27.0-33.0); MEAN CORPUSCULAR HGB CONC 30.8 g/dl (32.0-36.5); MEAN CORPUSCULAR VOLUME 84.1 fl (80.0-96.0); PLATELET COUNT, AUTOMATED 161 10^3/uL (150-450); WHITE BLOOD COUNT 7.3 10^3/uL (4.0-10.0)
[2022-05-18 06:52] LABS: HEMOGLOBIN 11.4 g/dl (12.0-15.5)
[2022-05-18 06:57] LABS: BLOOD UREA NITROGEN 9 MG/DL (9-23); CALCIUM LEVEL 8.4 MG/DL (8.3-10.6); CARBON DIOXIDE LEVEL 26 MMOL/L (20-31); CHLORIDE LEVEL 105 MMOL/L (98-107); CREATININE FOR GFR 0.65 MG/DL (0.55-1.30); GLOMERULAR FILTRATION RATE > 60.0 (>39); GLUCOSE, FASTING 116 MG/DL (74-106); MAGNESIUM LEVEL 1.8 MG/DL (1.8-2.4); PHOSPHORUS LEVEL 2.6 MG/DL (2.4-5.1); POTASSIUM SERUM 3.1 MMOL/L (3.5-5.1); SODIUM LEVEL 139 MMOL/L (136-145)
[2022-05-18] MEDS: ENOXAPARIN 40MG/0.4ML SYRINGE (J1650 PER 10MG) SC SCH (08:38)
[2022-05-18] MEDS ORDERED: MAG SULF 1GM/100ML (MAG RUN) 1 GM in IV 1 EA IV ONE (10:15)
[2022-05-18] MEDS: PANTOPRAZOLE 40MG VIAL IV SCH ×2 (10:29→22:47)
[2022-05-18] MEDS: ONDANSETRON 4MG 2ML VIAL IV PRN ×2 (12:00→18:50)
[2022-05-18] MEDS ORDERED: fentaNYL 100 MCG/2 ML INJECTION As Ordered ONE (12:56)
[2022-05-18] MEDS ORDERED: LIDOCAINE 2% 100MG/5ML SDV (FOR ANES.) As Ordered ONE (12:57)
[2022-05-18] MEDS ORDERED: propofoL 200 MG/20 ML VIAL As Ordered ONE ×2 (12:57→12:58)
[2022-05-18] MEDS ORDERED: ONDANSETRON 4MG 2ML VIAL As Ordered ONE (13:02)
[2022-05-18 19:24] LABS: HEMOGLOBIN A1c 7.1 % (4.0-6.0)
[2022-05-19] VITALS (8 sets, daily range): BP systolic 149–185; BP diastolic 68–85
[2022-05-19 06:27] LABS: HEMATOCRIT 38.2 % (36.0-47.0); HEMOGLOBIN 11.9 g/dl (12.0-15.5); MEAN CORPUSCULAR HEMOGLOBIN 25.6 pg (27.0-33.0); MEAN CORPUSCULAR HGB CONC 31.2 g/dl (32.0-36.5); MEAN CORPUSCULAR VOLUME 82.3 fl (80.0-96.0); PLATELET COUNT, AUTOMATED 175 10^3/uL (150-450); RED BLOOD COUNT 4.64 10^6/uL (4.00-5.40); WHITE BLOOD COUNT 5.2 10^3/uL (4.0-10.0)
[2022-05-19 06:59] LABS: BLOOD UREA NITROGEN < 5 MG/DL (9-23); CALCIUM LEVEL 8.6 MG/DL (8.3-10.6); CARBON DIOXIDE LEVEL 28 MMOL/L (20-31); CHLORIDE LEVEL 106 MMOL/L (98-107); CREATININE FOR GFR 0.64 MG/DL (0.55-1.30); GLOMERULAR FILTRATION RATE > 60.0 (>39); GLUCOSE, FASTING 140 MG/DL (74-106); MAGNESIUM LEVEL 1.9 MG/DL (1.8-2.4); POTASSIUM SERUM 2.8 MMOL/L (3.5-5.1); SODIUM LEVEL 140 MMOL/L (136-145)
[2022-05-19] MEDS: POTASSIUM CHLORIDE 10MEQ SR TABLET PO SCH ×2 (07:27→09:57)
[2022-05-19] MEDS: D5W/0.45% SODIUM CHLORIDE 1,000 ML IV SCH (09:55)
[2022-05-19] MEDS: PANTOPRAZOLE 40MG VIAL IV SCH ×2 (09:56→21:21)
[2022-05-19] MEDS: INSULIN LISPRO (NovoLOG) PER UNIT SC SCH ×5 (09:56→21:00)
[2022-05-19] MEDS: ENOXAPARIN 40MG/0.4ML SYRINGE (J1650 PER 10MG) SC SCH (09:57)
[2022-05-19] MEDS: LOSARTAN 50MG TABLET PO SCH (11:59)
[2022-05-19] MEDS: GABAPENTIN 300 MG CAP PO SCH (11:59)
[2022-05-19] MEDS: LEVOTHYROXINE 100MCG TABLET (0.1MG) PO SCH (12:00)
[2022-05-19] MEDS: SERTRALINE 100 MG TAB PO SCH (12:00)
[2022-05-19] MEDS: ASPIRIN 81MG ENTERIC TABLET PO SCH (12:00)
[2022-05-19] MEDS ORDERED: EXCEDRIN MIGRAINE TABLET PO PRN (12:55)
[2022-05-19] MEDS: ONDANSETRON 4MG 2ML VIAL IV PRN ×2 (14:56→21:21)
[2022-05-19] MEDS: SOLIFENACIN 5 MG TAB PO SCH (14:56)
[2022-05-19] MEDS: NYSTATIN 100,000 UNITS/GM TOPICAL PWD 15GM TOP SCH ×2 (14:57→21:23)
[2022-05-19 15:59] LABS: BLOOD UREA NITROGEN < 5 MG/DL (9-23); CALCIUM LEVEL 8.7 MG/DL (8.3-10.6); CARBON DIOXIDE LEVEL 26 MMOL/L (20-31); CHLORIDE LEVEL 106 MMOL/L (98-107); CREATININE FOR GFR 0.69 MG/DL (0.55-1.30); GLOMERULAR FILTRATION RATE > 60.0 (>39); GLUCOSE, FASTING 118 MG/DL (74-106); POTASSIUM SERUM 4.9 MMOL/L (3.5-5.1); SODIUM LEVEL 139 MMOL/L (136-145)
[2022-05-19] MEDS: SIMVASTATIN 40 MG TAB PO SCH (21:22)
[2022-05-19] MEDS: DOCUSATE SODIUM 100MG CAPSULE PO SCH (21:22)
[2022-05-20] VITALS (7 sets, daily range): BP systolic 115–165; BP diastolic 66–79
[2022-05-20 06:21] LABS: HEMATOCRIT 38.7 % (36.0-47.0); HEMOGLOBIN 12.3 g/dl (12.0-15.5); MEAN CORPUSCULAR HEMOGLOBIN 25.9 pg (27.0-33.0); MEAN CORPUSCULAR HGB CONC 31.8 g/dl (32.0-36.5); MEAN CORPUSCULAR VOLUME 81.6 fl (80.0-96.0); PLATELET COUNT, AUTOMATED 176 10^3/uL (150-450); RED BLOOD COUNT 4.74 10^6/uL (4.00-5.40); WHITE BLOOD COUNT 4.5 10^3/uL (4.0-10.0)
[2022-05-20 06:54] LABS: BLOOD UREA NITROGEN 5 MG/DL (9-23); CALCIUM LEVEL 9.4 MG/DL (8.3-10.6); CARBON DIOXIDE LEVEL 25 MMOL/L (20-31); CHLORIDE LEVEL 104 MMOL/L (98-107); CREATININE FOR GFR 0.61 MG/DL (0.55-1.30); GLOMERULAR FILTRATION RATE > 60.0 (>39); GLUCOSE, FASTING 152 MG/DL (74-106); PHOSPHORUS LEVEL 2.7 MG/DL (2.4-5.1); SODIUM LEVEL 138 MMOL/L (136-145)
[2022-05-20] MEDS: LOSARTAN 50MG TABLET PO SCH (07:12)
[2022-05-20] MEDS ORDERED: FIORICET TAB PO ONE (09:35)
[2022-05-20] MEDS ORDERED: MAALOX 30 ML SUSP *UDC PO ONE (09:35)
[2022-05-20] MEDS: SOLIFENACIN 5 MG TAB PO SCH (10:00)
[2022-05-20] MEDS: INSULIN LISPRO (NovoLOG) PER UNIT SC SCH ×4 (10:00→20:37)
[2022-05-20] MEDS: PANTOPRAZOLE 40MG VIAL IV SCH ×2 (10:01→21:01)
[2022-05-20] MEDS: hydroCHLOROthiazide 12.5 MG CAPSULE PO SCH (10:01)
[2022-05-20] MEDS: ASPIRIN 81MG ENTERIC TABLET PO SCH (10:01)
[2022-05-20] MEDS: SERTRALINE 100 MG TAB PO SCH (10:01)
[2022-05-20] MEDS: NYSTATIN 100,000 UNITS/GM TOPICAL PWD 15GM TOP SCH ×2 (10:02→21:11)
[2022-05-20] MEDS: LEVOTHYROXINE 100MCG TABLET (0.1MG) PO SCH (10:02)
[2022-05-20] MEDS: GABAPENTIN 300 MG CAP PO SCH (10:02)
[2022-05-20] MEDS: ENOXAPARIN 40MG/0.4ML SYRINGE (J1650 PER 10MG) SC SCH (10:03)
[2022-05-20] MEDS: SIMVASTATIN 40 MG TAB PO SCH (20:45)
[2022-05-20] MEDS: FIORICET TAB PO PRN (20:45)
[2022-05-20] MEDS: DOCUSATE SODIUM 100MG CAPSULE PO SCH (20:45)
[2022-05-20] MEDS: ONDANSETRON 4MG 2ML VIAL IV PRN (20:45)
[2022-05-21] VITALS (8 sets, daily range): BP systolic 109–179; BP diastolic 56–76
[2022-05-21 06:03] LABS: BLOOD UREA NITROGEN 7 MG/DL (9-23); CALCIUM LEVEL 9.6 MG/DL (8.3-10.6); CARBON DIOXIDE LEVEL 28 MMOL/L (20-31); CHLORIDE LEVEL 103 MMOL/L (98-107); CREATININE FOR GFR 0.69 MG/DL (0.55-1.30); GLOMERULAR FILTRATION RATE > 60.0 (>39); GLUCOSE, FASTING 150 MG/DL (74-106); MAGNESIUM LEVEL 2.1 MG/DL (1.8-2.4); PHOSPHORUS LEVEL 3.6 MG/DL (2.4-5.1); POTASSIUM SERUM 3.5 MMOL/L (3.5-5.1); SODIUM LEVEL 140 MMOL/L (136-145)
[2022-05-21] MEDS: LEVOTHYROXINE 100MCG TABLET (0.1MG) PO SCH (06:31)
[2022-05-21] MEDS: FIORICET TAB PO PRN (06:36)
[2022-05-21] MEDS: ONDANSETRON 4MG 2ML VIAL IV PRN (06:36)
[2022-05-21] MEDS: INSULIN LISPRO (NovoLOG) PER UNIT SC SCH ×4 (08:04→20:35)
[2022-05-21] MEDS: ASPIRIN 81MG ENTERIC TABLET PO SCH (08:05)
[2022-05-21] MEDS: ENOXAPARIN 40MG/0.4ML SYRINGE (J1650 PER 10MG) SC SCH (08:05)
[2022-05-21] MEDS: LOSARTAN 50MG TABLET PO SCH (08:05)
[2022-05-21] MEDS: hydroCHLOROthiazide 12.5 MG CAPSULE PO SCH (08:05)
[2022-05-21] MEDS: SERTRALINE 100 MG TAB PO SCH (08:05)
[2022-05-21] MEDS: NYSTATIN 100,000 UNITS/GM TOPICAL PWD 15GM TOP SCH ×2 (08:06→20:38)
[2022-05-21] MEDS: GABAPENTIN 300 MG CAP PO SCH (08:06)
[2022-05-21] MEDS: SOLIFENACIN 5 MG TAB PO SCH (08:07)
[2022-05-21] MEDS: PANTOPRAZOLE 40MG VIAL IV SCH ×2 (12:05→22:52)
[2022-05-21] MEDS ORDERED: amLODIPine 5 MG TAB PO ONE (13:40)
[2022-05-21] MEDS: TOPIRAMATE (TopAMAX) 25 MG TAB PO SCH (14:18)
[2022-05-21] MEDS ORDERED: MOM 30ML SUSPENSION UDC PO ONE (15:00)
[2022-05-21] MEDS: DOCUSATE SODIUM 100MG CAPSULE PO SCH (20:37)
[2022-05-21] MEDS: SENOKOT S TAB PO SCH (20:37)
[2022-05-21] MEDS: SIMVASTATIN 40 MG TAB PO SCH (20:37)
[2022-05-22] VITALS (7 sets, daily range): BP systolic 100–137; BP diastolic 62–69
[2022-05-22] MEDS: LEVOTHYROXINE 100MCG TABLET (0.1MG) PO SCH (05:40)
[2022-05-22] MEDS: TOPIRAMATE (TopAMAX) 25 MG TAB PO SCH (08:04)
[2022-05-22] MEDS: hydroCHLOROthiazide 12.5 MG CAPSULE PO SCH (08:04)
[2022-05-22] MEDS: LOSARTAN 50MG TABLET PO SCH (08:04)
[2022-05-22] MEDS: INSULIN LISPRO (NovoLOG) PER UNIT SC SCH ×3 (08:04→17:29)
[2022-05-22] MEDS: SOLIFENACIN 5 MG TAB PO SCH (08:04)
[2022-05-22] MEDS: ENOXAPARIN 40MG/0.4ML SYRINGE (J1650 PER 10MG) SC SCH (08:05)
[2022-05-22] MEDS: SERTRALINE 100 MG TAB PO SCH (08:05)
[2022-05-22] MEDS: ASPIRIN 81MG ENTERIC TABLET PO SCH (08:05)
[2022-05-22] MEDS: GABAPENTIN 300 MG CAP PO SCH (08:05)
[2022-05-22] MEDS: SENOKOT S TAB PO SCH (08:05)
[2022-05-22] MEDS: NYSTATIN 100,000 UNITS/GM TOPICAL PWD 15GM TOP SCH (08:05)
[2022-05-22] MEDS ORDERED: amLODIPine 5 MG TAB PO SCH ×2 (09:00→12:00)
[2022-05-22] MEDS ORDERED: AMLO1TAB24 PO (10:44)
[2022-05-22] MEDS ORDERED: TOPA1TAB PO (10:44)
[2022-05-22] MEDS ORDERED: MOM 30ML SUSPENSION UDC PO ONE (11:00)
[2022-05-22] MEDS ORDERED: MIRA3350 PO (11:01)
[2022-05-22] MEDS: PANTOPRAZOLE 40MG VIAL IV SCH (11:48)
== END 2022-05-22 19:00 | disposition home or self-care (01) | DRG 392 ==
LOC: M ED 00:24 → M ED INP 07:41 → ENRESERV 14:14 → M MSPAV 16:41
PROVIDERS: ADMIT Internal Medicine; ATTEND Internal Medicine
PROC: 0DJ08ZZ Inspection of Upper Intestinal Tract, Via Natural or Artificial Opening Endoscopic (ICD-10-PCS; principal; 2022-05-18 12:45)
DX: R11.2 Nausea with vomiting, unspecified (principal); I10 Essential (primary) hypertension; T38.3X5A Adverse effect of insulin and oral hypoglycemic [antidiabetic] drugs, initial encounter; E83.42 Hypomagnesemia; E78.5 Hyperlipidemia, unspecified; E11.43 Type 2 diabetes mellitus with diabetic autonomic (poly)neuropathy; K44.9 Diaphragmatic hernia without obstruction or gangrene; E03.9 Hypothyroidism, unspecified; M81.0 Age-related osteoporosis without current pathological fracture; K21.9 Gastro-esophageal reflux disease without esophagitis; N32.81 Overactive bladder; G43.909 Migraine, unspecified, not intractable, without status migrainosus; F39 Unspecified mood [affective] disorder; Z90.79 Acquired absence of other genital organ(s); E87.6 Hypokalemia; Z20.822 Contact with and (suspected) exposure to COVID-19; Z79.82 Long term (current) use of aspirin; Z79.4 Long term (current) use of insulin; Z79.84 Long term (current) use of oral hypoglycemic drugs; Z79.890 Hormone replacement therapy; Z79.899 Other long term (current) drug therapy; Z91.040 Latex allergy status; Z88.8 Allergy status to other drugs, medicaments and biological substances

== ENCOUNTER → 2022-08-17 | Outpatient (CLI) | payer MEDICARE, BC ==
[~2022-08-17] MED LIST changes: +AMLO1TAB24 PO; +DRIS50003 PO; +LANTINJ4 SC; +LEVO100T5 PO; +LOSA100T46 PO; +MIRA3350 PO; +PIOG1TAB55 PO; +TOPA1TAB PO; +TRUL10IN SC; +ZOLO100T PO
[2022-08-17 11:50] LABS: ALBUMIN 3.6 G/DL (3.2-5.2); BILIRUBIN,DIRECT 0.1 MG/DL (<0.4); BILIRUBIN,TOTAL 0.3 MG/DL (0.3-1.2); CHOLESTEROL RISK RATIO 4.51 (<5); HDL CHOLESTEROL 43.2 MG/DL (>40); LDL CHOLESTEROL 129.8 MG/DL (<100); MAGNESIUM LEVEL 1.9 MG/DL (1.8-2.4); NON-HDL-C 151.8 MG/DL; THYROID STIMULATING HORMONE 13.276 uIU/ML (0.55-4.78)
[2022-08-17 11:51] LABS: FREE T4 0.99 NG/DL (0.89-1.76)
== END ==
LOC: M LAB 10:20
PROVIDERS: ATTEND Family Medicine
DX: E11.9 Type 2 diabetes mellitus without complications (principal); E03.9 Hypothyroidism, unspecified; I10 Essential (primary) hypertension; E78.2 Mixed hyperlipidemia

== ENCOUNTER 2022-08-29 21:58 | Emergency (ER) | payer MEDICARE, BC, OTHER ==
[2022-08-30] MEDS ORDERED: TRAM50TA2 PO (02:10)
[2022-08-30] MEDS ORDERED: AMLO2.5T3 PO (02:10)
[2022-08-30 03:17] LABS: LIPASE 37 U/L (12-53)
[2022-08-30 03:19] LABS: ALKALINE PHOSPHATASE 96 U/L (46-116); ALT/SGPT 15 U/L (7.0-40); AST/SGOT 23 U/L (<34); BILIRUBIN,DIRECT < 0.1 MG/DL (<0.4); BILIRUBIN,TOTAL 0.4 MG/DL (0.3-1.2); TOTAL PROTEIN 7.7 G/DL (5.7-8.2)
[2022-08-30 03:40] LABS: BASO % 0.5 % (0.0-1.0); EOS # 0.1 10^3/uL (0.0-0.5); EOS % 1.6 % (0.0-3.0); HEMATOCRIT 40.9 % (36.0-47.0); HEMOGLOBIN 13.1 g/dl (12.0-15.5); LYMPH # 2.3 10^3/uL (1.5-5.0); LYMPH % 36.4 % (24.0-44.0); MEAN CORPUSCULAR VOLUME 81.3 fl (80.0-96.0); MONO # 0.6 10^3/uL (0.0-0.8); NEUTROPHILS # 3.2 10^3/uL (1.5-8.5); NEUTROPHILS % 52.2 % (36.0-66.0); PLATELET COUNT, AUTOMATED 204 10^3/uL (150-450); RED BLOOD COUNT 5.03 10^6/uL (4.00-5.40); WHITE BLOOD COUNT 6.2 10^3/uL (4.0-10.0)
[2022-08-30] MEDS ORDERED: METHOCARBAMOL 1,000 MG/10 ML VIAL IV ONE (03:50)
[2022-08-30] MEDS ORDERED: ISOVUE-370 76% 100ML VIAL As Ordered ONE (04:00)
[2022-08-30] MEDS ORDERED: KETOROLAC 30 MG/ML 1ML VIAL IV ONE (04:00)
[2022-08-30] MEDS ORDERED: NAPR-885 PO (06:51)
[2022-08-30] MEDS ORDERED: METH-1165 PO (06:51)
[2022-08-30 07:26] VITALS: BP 147/67
== END 2022-08-30 07:46 | disposition home or self-care (01) ==
LOC: M ED 21:58
DX: M54.50 Low back pain, unspecified (principal); E11.9 Type 2 diabetes mellitus without complications; I10 Essential (primary) hypertension; K21.9 Gastro-esophageal reflux disease without esophagitis; E78.5 Hyperlipidemia, unspecified; E03.9 Hypothyroidism, unspecified; M81.0 Age-related osteoporosis without current pathological fracture; Z91.040 Latex allergy status; Z88.8 Allergy status to other drugs, medicaments and biological substances; Z79.899 Other long term (current) drug therapy; Z79.4 Long term (current) use of insulin; Z79.82 Long term (current) use of aspirin
CPT/HCPCS: 74177; 80047; 80076; 83690; 85025; 93041; 96374; 96375; 99285; J1885; J2800; Q9967

== ENCOUNTER → 2022-11-02 | Outpatient (CLI) | payer MEDICARE, BC, OTHER ==
[~2022-11-02] MED LIST changes: +AMLO2.5T3 PO; +METH-1165 PO; +NAPR-885 PO; +TRAM50TA2 PO
[2022-11-02 11:28] LABS: ALBUMIN 3.8 G/DL (3.2-5.2); ALKALINE PHOSPHATASE 90 U/L (46-116); ALT/SGPT 10 U/L (7.0-40); AST/SGOT 9 U/L (<34); BILIRUBIN,DIRECT 0.2 MG/DL (<0.4); BILIRUBIN,TOTAL 0.6 MG/DL (0.3-1.2); BLOOD UREA NITROGEN 14 MG/DL (9-23); CALCIUM LEVEL 9.7 MG/DL (8.3-10.6); CARBON DIOXIDE LEVEL 27 MMOL/L (20-31); CHLORIDE LEVEL 104 MMOL/L (98-107); CHOLESTEROL LEVEL 213 MG/DL (<200); CHOLESTEROL RISK RATIO 3.65 (<5); CPK CREATINE PHOSPHOKINASE 50 U/L (34-145); CREATININE FOR GFR 0.72 MG/DL (0.55-1.30); GLOMERULAR FILTRATION RATE > 60.0 (>39); GLUCOSE, FASTING 263 MG/DL (74-106); HDL CHOLESTEROL 58.3 MG/DL (>40); LDL CHOLESTEROL 132.1 MG/DL (<100); NON-HDL-C 154.7 MG/DL; POTASSIUM SERUM 3.8 MMOL/L (3.5-5.1); SODIUM LEVEL 136 MMOL/L (136-145); TOTAL PROTEIN 7.2 G/DL (5.7-8.2); TRIGLYCERIDES LEVEL 113 MG/DL (<150)
[2022-11-02 11:30] LABS: FREE T4 0.94 NG/DL (0.89-1.76)
== END ==
LOC: M LAB 10:32
PROVIDERS: ATTEND Family Medicine
DX: E03.8 Other specified hypothyroidism (principal); E78.2 Mixed hyperlipidemia; I10 Essential (primary) hypertension

== ENCOUNTER → 2022-12-14 | Outpatient (CLI) | payer MEDICARE, BC, OTHER ==
[2022-12-14 12:10] LABS: ALBUMIN 4.1 G/DL (3.2-5.2); BILIRUBIN,DIRECT 0.3 MG/DL (<0.4); BILIRUBIN,TOTAL 0.8 MG/DL (0.3-1.2); CHOLESTEROL RISK RATIO 3.2 (<5); HDL CHOLESTEROL 64.6 MG/DL (>40); LDL CHOLESTEROL 126.4 MG/DL (<100); NON-HDL-C 142.4 MG/DL; TOTAL PROTEIN 7.9 G/DL (5.7-8.2)
[2022-12-14 12:11] LABS: FREE T4 1.02 NG/DL (0.89-1.76); THYROID STIMULATING HORMONE 7.302 uIU/ML (0.55-4.78)
== END ==
LOC: M LAB 10:27
PROVIDERS: ATTEND Family Medicine
DX: R94.6 Abnormal results of thyroid function studies (principal); E78.2 Mixed hyperlipidemia

== ENCOUNTER → 2023-02-13 | Outpatient (CLI) | payer MEDICARE, BC, OTHER ==
[~2023-02-13] MED LIST changes: +GLIP5TAB17 PO; -GLIP5TAB8 PO
[2023-02-13 12:59] LABS: BASO # 0.1 10^3/uL (0.0-0.2); EOS # 0.1 10^3/uL (0.0-0.5); EOS % 1.9 % (0.0-3.0); HEMATOCRIT 44.1 % (36.0-47.0); HEMOGLOBIN 13.7 g/dl (12.0-15.5); LYMPH # 1.4 10^3/uL (1.5-5.0); LYMPH % 29.9 % (24.0-44.0); MEAN CORPUSCULAR HEMOGLOBIN 25.2 pg (27.0-33.0); MEAN CORPUSCULAR HGB CONC 31.1 g/dl (32.0-36.5); MEAN CORPUSCULAR VOLUME 81.2 fl (80.0-96.0); MONO # 0.4 10^3/uL (0.0-0.8); NEUTROPHILS # 2.8 10^3/uL (1.5-8.5); PLATELET COUNT, AUTOMATED 192 10^3/uL (150-450); RED BLOOD COUNT 5.43 10^6/uL (4.00-5.40); WHITE BLOOD COUNT 4.8 10^3/uL (4.0-10.0)
[2023-02-13 13:12] LABS: ALBUMIN 3.9 G/DL (3.2-5.2); ALKALINE PHOSPHATASE 62 U/L (46-116); ALT/SGPT 28 U/L (7.0-40); AST/SGOT 21 U/L (<34); BILIRUBIN,DIRECT 0.2 MG/DL (<0.4); BILIRUBIN,TOTAL 0.6 MG/DL (0.3-1.2); BLOOD UREA NITROGEN 19 MG/DL (9-23); CALCIUM LEVEL 9.9 MG/DL (8.3-10.6); CARBON DIOXIDE LEVEL 31 MMOL/L (20-31); CHLORIDE LEVEL 101 MMOL/L (98-107); CHOLESTEROL LEVEL 158 MG/DL (<200); CHOLESTEROL RISK RATIO 2.32 (<5); CPK CREATINE PHOSPHOKINASE 38 U/L (34-145); GLOMERULAR FILTRATION RATE > 60.0 (>39); GLUCOSE, FASTING 123 MG/DL (74-106); HDL CHOLESTEROL 68.1 MG/DL (>40); LDL CHOLESTEROL 71.7 MG/DL (<100); NON-HDL-C 89.9 MG/DL; POTASSIUM SERUM 3.7 MMOL/L (3.5-5.1); SODIUM LEVEL 141 MMOL/L (136-145); TOTAL PROTEIN 7.6 G/DL (5.7-8.2); TRIGLYCERIDES LEVEL 91 MG/DL (<150)
[2023-02-13 13:14] LABS: FREE T4 1.52 NG/DL (0.89-1.76); THYROID STIMULATING HORMONE 0.292 uIU/ML (0.55-4.78)
[2023-02-13 13:23] LABS: CREATININE, URINE 182.8 MG/DL
[2023-02-13 13:24] LABS: MAU/CREAT RATIO 7.6 MCG/MG (0.0-30.0)
== END ==
LOC: M LAB 11:38
PROVIDERS: ATTEND Family Medicine
DX: E03.8 Other specified hypothyroidism (principal); E78.2 Mixed hyperlipidemia; E11.8 Type 2 diabetes mellitus with unspecified complications; I10 Essential (primary) hypertension; R53.83 Other fatigue

== ENCOUNTER → 2023-07-10 | Outpatient (CLI) | payer MEDICARE, BC, OTHER ==
[2023-07-10 09:06] LABS: MAU/CREAT RATIO 138.4 MCG/MG (0.0-30.0)
[2023-07-10 09:07] LABS: ALBUMIN 4.3 G/DL (3.2-5.2); ALKALINE PHOSPHATASE 73 U/L (46-116); ALT/SGPT 15 U/L (7.0-40); AST/SGOT 25 U/L (<34); BILIRUBIN,DIRECT 0.1 MG/DL (<0.4); BILIRUBIN,TOTAL 0.4 MG/DL (0.3-1.2); BLOOD UREA NITROGEN 9 MG/DL (9-23); CALCIUM LEVEL 9.8 MG/DL (8.3-10.6); CARBON DIOXIDE LEVEL 22 MMOL/L (20-31); CHLORIDE LEVEL 105 MMOL/L (98-107); CHOLESTEROL LEVEL 148 MG/DL (<200); CREATININE FOR GFR 0.61 MG/DL (0.55-1.30); GLOMERULAR FILTRATION RATE > 60.0 (>39); GLUCOSE, FASTING 84 MG/DL (74-106); HDL CHOLESTEROL 61.5 MG/DL (>40); LDL CHOLESTEROL 68.9 MG/DL (<100); NON-HDL-C 86.5 MG/DL; POTASSIUM SERUM 4.2 MMOL/L (3.5-5.1); SODIUM LEVEL 139 MMOL/L (136-145); TOTAL PROTEIN 7.9 G/DL (5.7-8.2); TRIGLYCERIDES LEVEL 88 MG/DL (<150)
[2023-07-10 09:18] LABS: CPK CREATINE PHOSPHOKINASE 68 U/L (34-145)
== END ==
LOC: M LAB 07:24
PROVIDERS: ATTEND Family Medicine
DX: E11.8 Type 2 diabetes mellitus with unspecified complications (principal); E78.2 Mixed hyperlipidemia

== ENCOUNTER 2023-07-25 00:55 | Emergency (ER) | payer MEDICARE, BC, OTHER ==
[~2023-07-25] VITALS: Ht 152.4 cm; Wt 61.8 kg
[2023-07-25 00:56] VITALS: BP 158/70; TEMP 97.9; O2SAT 99
== END 2023-07-25 01:33 | disposition left against medical advice (07) ==
LOC: M ED 00:55
DX: Z53.21 Procedure and treatment not carried out due to patient leaving prior to being seen by health care provider (principal)

== ENCOUNTER → 2023-12-05 | Outpatient (CLI) | payer MEDICARE, BC, OTHER ==
[2023-12-05 13:06] LABS: ALBUMIN 3.9 G/DL (3.2-5.2); ALKALINE PHOSPHATASE 76 U/L (46-116); ALT/SGPT 20 U/L (7.0-40); AST/SGOT 15 U/L (<34); BILIRUBIN,TOTAL 0.8 MG/DL (0.3-1.2); BLOOD UREA NITROGEN 17 MG/DL (9-23); CALCIUM LEVEL 9.7 MG/DL (8.3-10.6); CARBON DIOXIDE LEVEL 25 MMOL/L (20-31); CHLORIDE LEVEL 102 MMOL/L (98-107); CHOLESTEROL LEVEL 232 MG/DL (<200); CHOLESTEROL RISK RATIO 3.54 (<5); CREATININE FOR GFR 0.75 MG/DL (0.55-1.30); GLOMERULAR FILTRATION RATE > 60.0 (>39); GLUCOSE, FASTING 229 MG/DL (74-106); HDL CHOLESTEROL 65.5 MG/DL (>40); LDL CHOLESTEROL 151.9 MG/DL (<100); MAGNESIUM LEVEL 1.9 MG/DL (1.8-2.4); NON-HDL-C 166.5 MG/DL; POTASSIUM SERUM 4.2 MMOL/L (3.5-5.1); SODIUM LEVEL 134 MMOL/L (136-145); TOTAL PROTEIN 7.9 G/DL (5.7-8.2); TRIGLYCERIDES LEVEL 73 MG/DL (<150)
[2023-12-05 13:08] LABS: THYROID STIMULATING HORMONE 5.488 uIU/ML (0.55-4.78); TOTAL 25(OH) VITAMIN D 41.5 NG/ML (20.0-100.0)
[2023-12-05 13:09] LABS: FREE T4 1.22 NG/DL (0.89-1.76)
[2023-12-05 13:18] LABS: CPK CREATINE PHOSPHOKINASE 34 U/L (34-145)
[2023-12-05 13:18] LABS: CREATININE, URINE 353.7 MG/DL; MAU/CREAT RATIO 108.8 MCG/MG (0.0-30.0)
== END ==
LOC: M LAB 11:35
PROVIDERS: ATTEND Family Medicine
DX: E55.9 Vitamin D deficiency, unspecified (principal); E11.69 Type 2 diabetes mellitus with other specified complication; E78.2 Mixed hyperlipidemia; E03.9 Hypothyroidism, unspecified; I10 Essential (primary) hypertension

== ENCOUNTER 2024-02-26 11:33 | Emergency (ER) | payer MEDICARE, BC, OTHER ==
[~2024-02-26] VITALS: Ht 152.4 cm; Wt 59.1 kg
[2024-02-26] MEDS: ACETAMINOPHEN 325 MG TAB PO ONE (13:54)
[2024-02-26 14:01] LABS: BASO # 0.1 10^3/uL (0.0-0.2); BASO % 0.9 % (0.0-1.0); EOS % 0.6 % (0.0-3.0); HEMATOCRIT 45.4 % (36.0-47.0); HEMOGLOBIN 14.7 g/dl (12.0-15.5); LYMPH # 2.2 10^3/uL (1.5-5.0); LYMPH % 39.8 % (24.0-44.0); MEAN CORPUSCULAR HEMOGLOBIN 26.3 pg (27.0-33.0); MEAN CORPUSCULAR HGB CONC 32.4 g/dl (32.0-36.5); MEAN CORPUSCULAR VOLUME 81.1 fl (80.0-96.0); MONO # 0.3 10^3/uL (0.0-0.8); MONO % 6.3 % (2.0-8.0); NEUTROPHILS # 2.8 10^3/uL (1.5-8.5); PLATELET COUNT, AUTOMATED 189 10^3/uL (150-450); WHITE BLOOD COUNT 5.4 10^3/uL (4.0-10.0)
[2024-02-26 14:12] LABS: INR 0.91; PROTHROMBIN TIME 12.6 SECONDS (12.5-14.5)
[2024-02-26 14:34] LABS: ALBUMIN 3.8 G/DL (3.2-5.2); ALKALINE PHOSPHATASE 67 U/L (35-104); ALT/SGPT 36 U/L (7.0-40); AST/SGOT 42 U/L (<34); BILIRUBIN,DIRECT 0.1 MG/DL (<0.4); BILIRUBIN,TOTAL 0.6 MG/DL (0.3-1.2); BLOOD UREA NITROGEN 10 MG/DL (9-23); CALCIUM LEVEL 9.9 MG/DL (8.3-10.6); CARBON DIOXIDE LEVEL 28 MMOL/L (20-31); CHLORIDE LEVEL 108 MMOL/L (98-107); CK-MB VALUE MASS < 1.0 NG/ML (<3.6); CPK CREATINE PHOSPHOKINASE 83 U/L (34-145); CREATININE FOR GFR 0.61 MG/DL (0.55-1.30); GLOMERULAR FILTRATION RATE > 60.0 (>39); GLUCOSE, FASTING 88 MG/DL (74-106); LIPASE 36 U/L (12-53); POTASSIUM SERUM 5.6 MMOL/L (3.5-5.1); SODIUM LEVEL 142 MMOL/L (136-145); TOTAL PROTEIN 7.7 G/DL (5.7-8.2)
[2024-02-26] MEDS: ASPIRIN 81MG CHEW TABLET PO ONE (15:17)
[2024-02-26 15:39] LABS: CK-MB VALUE MASS < 1.0 NG/ML (<3.6)
[2024-02-26 15:41] LABS: CPK CREATINE PHOSPHOKINASE 62 U/L (34-145); MB/CK RELATIVE INDEX 1.61 (< OR =4)
[2024-02-26 18:26] VITALS: BP 163/80; TEMP 97.2; O2SAT 100
== END 2024-02-26 18:50 | disposition home or self-care (01) ==
LOC: M ED 11:33
DX: R55 Syncope and collapse (principal); R51.9 Headache, unspecified; E11.9 Type 2 diabetes mellitus without complications; I10 Essential (primary) hypertension; K21.9 Gastro-esophageal reflux disease without esophagitis; F39 Unspecified mood [affective] disorder; Z79.82 Long term (current) use of aspirin; Z79.4 Long term (current) use of insulin; Z79.899 Other long term (current) drug therapy; Z88.8 Allergy status to other drugs, medicaments and biological substances; Z91.040 Latex allergy status

== ENCOUNTER → 2024-02-26 | Outpatient (CLI) | payer MEDICARE, BC, OTHER ==
[~2024-02-26] MED LIST changes: +GABA-1172 PO; -GABA-282 PO
[2024-02-26 12:31] LABS: FREE T4 0.99 NG/DL (0.89-1.76); THYROID STIMULATING HORMONE 10.095 uIU/ML (0.55-4.78)
[2024-02-26 12:58] LABS: APPEARANCE, URINE HAZY (CLEAR); BACTERIA, URINE AUTO 1+ (NEGATIVE); BILIRUBIN, URINE AUTO NEGATIVE (NEGATIVE); BLOOD, URINE BLOOD NEGATIVE (NEGATIVE); COLOR, URINE YELLOW (YELLOW); GLUCOSE, URINE (UA) AUTO NEGATIVE (NEGATIVE); KETONE, URINE AUTO NEGATIVE (NEGATIVE); LEUKOCYTE ESTERASE, URINE AUTO 2+ (NEGATIVE); MUCUS, URINE SMALL (NEGATIVE); NITRITE, URINE AUTO POSITIVE (NEGATIVE); PROTEIN, URINE AUTO NEGATIVE (NEGATIVE); RBC, URINE AUTO 7 /HPF (0-3); SPECIFIC GRAVITY URINE AUTO 1.013 (1.002-1.035); SQUAMOUS EPITHELIAL CELL UR AU 2 /HPF (0-6); UROBILINOGEN, URINE AUTO 0.2 mg/dL (0.0-2.0); WBC, URINE AUTO 93 /HPF (0-3)
[2024-02-26 13:02] LABS: FREE T3 3.2 PG/ML (2.3-4.2)
== END ==
LOC: M LAB 10:48
PROVIDERS: ATTEND Family Medicine
DX: N30.00 Acute cystitis without hematuria (principal)

== ENCOUNTER → 2024-05-15 | Outpatient (CLI) | payer MEDICARE, BC, OTHER ==
[2024-05-15 11:26] LABS: BASO % 0.8 % (0.0-1.0); EOS # 0.1 10^3/uL (0.0-0.5); HEMATOCRIT 46.4 % (36.0-47.0); HEMOGLOBIN 14.6 g/dl (12.0-15.5); LYMPH # 1.6 10^3/uL (1.5-5.0); LYMPH % 32.5 % (24.0-44.0); MEAN CORPUSCULAR HEMOGLOBIN 25.7 pg (27.0-33.0); MEAN CORPUSCULAR HGB CONC 31.5 g/dl (32.0-36.5); MEAN CORPUSCULAR VOLUME 81.5 fl (80.0-96.0); MONO # 0.5 10^3/uL (0.0-0.8); MONO % 9.9 % (2.0-8.0); NEUTROPHILS # 2.7 10^3/uL (1.5-8.5); NEUTROPHILS % 54.6 % (36.0-66.0); PLATELET COUNT, AUTOMATED 213 10^3/uL (150-450); RED BLOOD COUNT 5.69 10^6/uL (4.00-5.40)
[2024-05-15 12:02] LABS: CREATININE, URINE 209.3 MG/DL; MAU/CREAT RATIO 8.6 MCG/MG (0.0-30.0)
[2024-05-15 12:05] LABS: THYROID STIMULATING HORMONE 10.988 uIU/ML (0.55-4.78); TOTAL 25(OH) VITAMIN D 42.6 NG/ML (20.0-100.0)
[2024-05-15 12:07] LABS: CPK CREATINE PHOSPHOKINASE 44 U/L (34-145); FREE T4 1.09 NG/DL (0.89-1.76)
[2024-05-15 12:08] LABS: ALBUMIN 3.6 G/DL (3.2-5.2); ALKALINE PHOSPHATASE 98 U/L (35-104); ALT/SGPT 13 U/L (7.0-40); AST/SGOT 12 U/L (<34); BILIRUBIN,TOTAL 0.7 MG/DL (0.3-1.2); BLOOD UREA NITROGEN 13 MG/DL (9-23); CALCIUM LEVEL 10.1 MG/DL (8.3-10.6); CARBON DIOXIDE LEVEL 29 MMOL/L (20-31); CHLORIDE LEVEL 103 MMOL/L (98-107); CHOLESTEROL LEVEL 221 MG/DL (<200); CHOLESTEROL RISK RATIO 3.91 (<5); CREATININE FOR GFR 0.68 MG/DL (0.55-1.30); GLOMERULAR FILTRATION RATE > 60.0 (>39); GLUCOSE, FASTING 305 MG/DL (74-106); HDL CHOLESTEROL 56.4 MG/DL (>40); LDL CHOLESTEROL 142.8 MG/DL (<100); NON-HDL-C 164.6 MG/DL; POTASSIUM SERUM 4.5 MMOL/L (3.5-5.1); SODIUM LEVEL 138 MMOL/L (136-145); TOTAL PROTEIN 7.6 G/DL (5.7-8.2); TRIGLYCERIDES LEVEL 109 MG/DL (<150)
== END ==
LOC: M LAB 08:39
PROVIDERS: ATTEND Family Medicine
DX: E03.9 Hypothyroidism, unspecified (principal); M89.9 Disorder of bone, unspecified; E11.8 Type 2 diabetes mellitus with unspecified complications; E78.2 Mixed hyperlipidemia; I10 Essential (primary) hypertension

== ENCOUNTER → 2024-05-23 | Outpatient (CLI) | payer MEDICARE, BC, OTHER | LOC: M WHC 13:57 | PROVIDERS: ATTEND Family Medicine | DX: Z12.31 Encounter for screening mammogram for malignant neoplasm of breast (principal); M85.89 Other specified disorders of bone density and structure, multiple sites; R92.313 Mammographic fatty tissue density, bilateral breasts ==

== ENCOUNTER 2024-07-21 15:37 | Emergency (ER) | payer MEDICARE, BC, OTHER ==
[~2024-07-21] VITALS: Ht 152.4 cm; Wt 54.5 kg
[~2024-07-21 15:37] MED LIST changes: -BYDU2INJ7 SC; +EXEN2AUT SC
[2024-07-21] MEDS: diphenhydrAMINE 50MG/ML VIAL IV ONE (16:29)
[2024-07-21] MEDS: dexAMETHasone 20MG/5ML VIAL IV ONE (16:33)
[2024-07-21 18:15] VITALS: BP 131/70; O2SAT 97
[2024-07-21] MEDS ORDERED: BENA25CA4 PO (18:49)
[2024-07-21 19:00] VITALS: TEMP 98.6
== END 2024-07-21 19:20 | disposition home or self-care (01) ==
LOC: M ED 15:37
DX: R21 Rash and other nonspecific skin eruption (principal); T38.3X5A Adverse effect of insulin and oral hypoglycemic [antidiabetic] drugs, initial encounter; E11.9 Type 2 diabetes mellitus without complications; I10 Essential (primary) hypertension; E78.5 Hyperlipidemia, unspecified; K21.9 Gastro-esophageal reflux disease without esophagitis; F32.A Depression, unspecified; Z79.82 Long term (current) use of aspirin; Z79.4 Long term (current) use of insulin; Z79.899 Other long term (current) drug therapy; Z88.8 Allergy status to other drugs, medicaments and biological substances; Z91.040 Latex allergy status
CPT/HCPCS: 93005; 96374; 96375; 99284; J1100; J1200

== ENCOUNTER → 2024-08-14 | Outpatient (CLI) | payer MEDICARE, BC, OTHER ==
[~2024-08-14] MED LIST changes: +BENA25CA4 PO
[2024-08-14 11:53] LABS: FREE T4 0.98 NG/DL (0.89-1.76)
[2024-08-14 11:54] LABS: THYROID STIMULATING HORMONE 9.761 uIU/ML (0.55-4.78)
[2024-08-14 11:56] LABS: ALBUMIN 3.7 G/DL (3.2-5.2); BILIRUBIN,DIRECT 0.2 MG/DL (<0.4); BILIRUBIN,TOTAL 0.7 MG/DL (0.3-1.2); CHOLESTEROL RISK RATIO 3.74 (<5); HDL CHOLESTEROL 58.7 MG/DL (>40); LDL CHOLESTEROL 143.7 MG/DL (<100); NON-HDL-C 161.3 MG/DL; TOTAL PROTEIN 7.3 G/DL (5.7-8.2)
[2024-08-14 11:58] LABS: FREE T3 3.1 PG/ML (2.3-4.2)
== END ==
LOC: M LAB 10:17
PROVIDERS: ATTEND Family Medicine
DX: E03.9 Hypothyroidism, unspecified (principal); E78.2 Mixed hyperlipidemia